=== PATIENT | female | born 2000 | race Caucasian/White ===

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

== ENCOUNTER 2018-07-27 14:12 | Emergency (ER) | payer OTHER ==
[~2018-07-27] VITALS: Ht 167.6 cm; Wt 99.4 kg
[2018-07-27 14:16] VITALS: BP 113/92
--- NOTE | 2018-07-27 14:27 | NUR ---
PT AMBULATORY TO ROOM 8 W/ C/O L WRIST PAIN AND SWELLING AFTER WRESTLING. PT RESTING ON ASHLY.
== END 2018-07-27 16:09 | disposition home or self-care (01) ==
LOC: ED 16:03
DX: M65.842 Other synovitis and tenosynovitis, left hand (principal)
CPT/HCPCS: 29260; 99283

== ENCOUNTER 2019-08-27 23:36 | Emergency (ER) | payer SELFPAY ==
[~2019-08-27] VITALS: Ht 165.1 cm; Wt 105.4 kg
--- NOTE | 2019-08-27 23:58 | NUR ---
UA SENT TO LAB. PT HERE FOR INCREASED FREQUENCY AND BURNING URINATION X 5 DAYS. PT HAS NO OTHER COMPLAINTS. VSS. CALL LIGHT IN REACH
[2019-08-28 00:17] LABS: HCG UR SG 1.029 (1.003-1.030)
[2019-08-28 00:22] LABS: MICROSCOPIC INDICATED
--- NOTE | 2019-08-28 01:00 | NUR ---
Patient given discharge instructions and they have confirmed that they understand the instructions. Patient ambulatory with steady gait.
[2019-08-28 01:01] VITALS: BP 132/71
== END 2019-08-28 01:11 | disposition home or self-care (01) ==
LOC: ED 23:45
DX: N30.00 Acute cystitis without hematuria (principal); Z90.89 Acquired absence of other organs
CPT/HCPCS: 81001; 81025; 87086; 99283